=== PATIENT | female | born 1935 | race Caucasian/White ===

== ENCOUNTER 2016-07-09 13:10 | Emergency (ER) | payer BC ==
[~2016-07-09] VITALS: Ht 154.9 cm; Wt 90.0 kg
[~2016-07-09 13:10] MED LIST: CHOL20004 PO; DILT120C2 PO; FAMO20TA8 PO; LEVO25TA7 PO; METO-296 PO; METO-298 PO; SIMV20TA6 PO
[2016-07-09 15:55] LABS: BASOPHILS % 0.7 % (0.0-2.0); DIFFERENTIAL COMMENT 0; EOSINOPHILS % 1.4 % (0.0-5.0); HEMATOCRIT. 30.2 % (36.0-48.0); LYMPHOCYTES % 26.4 % (20.0-50.0); MEAN CORPUSCULAR HGB CONC 33.2 g/dL (31.0-37.0); MEAN CORPUSCULAR VOLUME 87.2 fL (81.0-99.0); MEAN PLATELET VOLUME 8.3 fl (7.4-10.4); MONOCYTES % 10.4 % (2.0-8.0); NEUTROPHILS % 61.1 % (40.0-76.0); PLATELET 163 x1000/uL (130-400); RED BLOOD CELL COUNT 3.46 mill/uL (4.2-5.4); RED CELL DISTRIBUTION WIDTH 19.9 % (11.6-14.6); WHITE BLOOD COUNT 5.3 x1000/uL (4.5-11.0)
[2016-07-09 15:59] LABS: INR 1.9; PROTHROMBIN TIME 20.1 sec
[2016-07-09 16:09] LABS: ALANINE AMINOTRANSFERASE 22 IU/L (13-61); ALBUMIN 3.6 g/dL (3.4-5.0); ANION GAP 10; CALCIUM 8.4 mg/dL (8.5-10.1); CARBON DIOXIDE 26 mEq/L (21-32); CHLORIDE 110 mEq/L (98-107); INDEX HEMOLYSI 1 (1-3); INDEX ICTERIC 1 (1-4); INDEX LIPEMIC 1 (1-3); TROPONIN I < 0.02 ng/mL (0.00-0.04); UREA NITROGEN BLOOD 11 mg/dL (7-21); eGFR > 60 mL/min (>60)
[2016-07-09 19:07] VITALS: BP 179/83
== END 2016-07-09 19:38 | disposition home or self-care (01) ==
LOC: ER 14:58
DX: R53.1 Weakness (principal); R42 Dizziness and giddiness; R79.89 Other specified abnormal findings of blood chemistry; R03.0 Elevated blood-pressure reading, without diagnosis of hypertension; I48.91 Unspecified atrial fibrillation; Z86.73 Personal history of transient ischemic attack (TIA), and cerebral infarction without residual deficits; Z95.0 Presence of cardiac pacemaker
CPT/HCPCS: 36415; 71010; 80053; 84484; 85025; 85610; 86850; 86900; 93005; 99285

== ENCOUNTER 2017-06-20 06:47 | Observation (INO) | payer BC ==
[~2017-06-20] VITALS: Ht 152.4 cm; Wt 76.2 kg
[~2017-06-20 06:47] MED LIST changes: +DILT-26 PO; -DILT120C2 PO; -METO-296 PO; -METO-298 PO; +METO-385 PO
[2017-06-20] MEDS ORDERED: MORPHINE SULFATE 4 MG/ML CPJ (NOT FOR IM USE) IV STA (07:10)
[2017-06-20 07:54] LABS: BASOPHILS % 0.4 % (0.0-2.0); HEMATOCRIT. 26.6 % (36.0-48.0); HEMOGLOBIN. 9.1 g/dL (12.0-16.0); LYMPHOCYTES % 10.1 % (20.0-50.0); MEAN CORPUSCULAR HEMOGLOBIN 33.9 pg (28.0-32.0); MEAN PLATELET VOLUME 8.7 fl (7.4-10.4); NEUTROPHILS % 78.5 % (40.0-76.0); PLATELET 164 x1000/uL (130-400); RED BLOOD CELL COUNT 2.69 mill/uL (4.2-5.4)
[2017-06-20 07:59] LABS: CHLORIDE 109 mEq/L (98-107)
[2017-06-20 08:02] LABS: INR 1.2; PARTIAL THROMBOPLASTIN TIME 26.1 sec (23.4-31.0); PROTHROMBIN TIME 12.8 sec (9.4-11.6)
[2017-06-20] MEDS ORDERED: NITROGLYCERIN OINT 1GM/INCH UDPKT TD ONE (08:15)
[2017-06-20] MEDS ORDERED: MORPHINE SULFATE 2 MG/ML CPJ (NOT FOR IM USE) IV ONE (08:15)
[2017-06-20 10:49] VITALS: BP 120/58
[2017-06-20 12:00] VITALS: BP 120/58
[2017-06-20] MEDS ORDERED: IPRATROPIUM/ALBUTEROL 0.5-3(2.5)MG/3ML NEB INH PRN (12:30)
[2017-06-20] MEDS ORDERED: ONDANSETRON HCL 4MG/2ML VIAL IV PRN (12:30)
[2017-06-20] MEDS ORDERED: ACETAMINOPHEN 325MG TABLET PO PRN (12:30)
[2017-06-20] MEDS ORDERED: HYDROCODONE/ACETAMINOPHEN 5/325MG TABLET PO PRN (12:30)
[2017-06-20 16:00] VITALS: BP 121/52
[2017-06-20] MEDS: WARFARIN SODIUM 5MG TABLET PO SCH ×2 (18:00→22:37)
[2017-06-20 18:22] LABS: CREATINE KINASE 112 IU/L (26-192)
[2017-06-20 18:23] LABS: CREATINE KINASE MB FRACTION 0.9 ng/mL (0.5-3.6)
[2017-06-20 19:10] LABS: CLARITY URINE CLOUDY (CLEAR); COLOR URINE ORANGE (YELLOW); KETONES URINE TRACE (NEGATIVE); LEUKOCYTE ESTERASE URINE 1+ (NEGATIVE); NITRITE URINE NEGATIVE (NEGATIVE); OCCULT BLOOD URINE 3+ (NEGATIVE); PH URINE 6.5 (4.5-8.0); PROTEIN URINE 2+ (NEGATIVE)
[2017-06-20 19:32] LABS: *BARBITURATES SCREEN URINE NEGATIVE (NEGATIVE); *BENZODIAZEPINES SCREEN URINE NEGATIVE (NEGATIVE); CANNABINOID URINE SCREEN NEGATIVE (NEGATIVE); OPIATES URINE SCREEN PRESUMTIVE POSITIVE (NEGATIVE); PHENCYCLIDINE URINE SCREEN NEGATIVE (NEGATIVE)
[2017-06-20 19:33] LABS: *AMPHETAMINES SCREEN URINE NEGATIVE (NEGATIVE)
[2017-06-20 19:40] LABS: METHADONE URINE SCREEN NEGATIVE (NEGATIVE)
[2017-06-20 19:41] LABS: *COCAINE SCREEN URINE NEGATIVE (NEGATIVE)
[2017-06-20 20:00] VITALS: BP 116/51
[2017-06-20] MEDS ORDERED: IOHEXOL-350 100 ML BOTTLE ONE (22:04)
[2017-06-20] MEDS: ATORVASTATIN CALCIUM 10MG TABLET PO SCH (22:36)
[2017-06-20] MEDS: METOPROLOL TARTRATE 25MG TABLET PO SCH (22:36)
[2017-06-20] MEDS: CEFTRIAXONE 1 G PREMIX 50 ML IV SCH (23:06)
[2017-06-21] VITALS: BP 108/57
[2017-06-21 00:40] LABS: CREATINE KINASE 106 IU/L (26-192)
[2017-06-21 00:41] LABS: CREATINE KINASE MB FRACTION 0.7 ng/mL (0.5-3.6)
[2017-06-21 04:00] VITALS: BP 106/47
[2017-06-21 06:34] LABS: INR 1.2; PROTHROMBIN TIME 12.2 sec (9.4-11.6)
[2017-06-21] MEDS: LEVOTHYROXINE SODIUM 25MCG TABLET PO SCH (06:41)
[2017-06-21 07:02] LABS: BASOPHILS % 0.2 % (0.0-2.0); EOSINOPHILS % 0.9 % (0.0-5.0); HEMATOCRIT. 25.8 % (36.0-48.0); HEMOGLOBIN. 8.9 g/dL (12.0-16.0); LYMPHOCYTES % 16.4 % (20.0-50.0); MEAN CORPUSCULAR HEMOGLOBIN 33.9 pg (28.0-32.0); MEAN CORPUSCULAR VOLUME 98.3 fL (81.0-99.0); MONOCYTES % 13.4 % (2.0-8.0); NEUTROPHILS % 69.1 % (40.0-76.0); PLATELET 165 x1000/uL (130-400); RED BLOOD CELL COUNT 2.63 mill/uL (4.2-5.4); RED CELL DISTRIBUTION WIDTH 16.7 % (11.6-14.6)
[2017-06-21 07:48] LABS: CHLORIDE 108 mEq/L (98-107)
[2017-06-21 08:00] VITALS: BP 117/56
[2017-06-21 08:56] LABS: LDL CHOLESTEROL 46 mg/dL (5-100)
[2017-06-21 08:58] LABS: HDL CHOLESTEROL 58 mg/dL (40-59); T4 FREE 1.21 ng/dL (0.76-1.46)
[2017-06-21] MEDS ORDERED: MEDICATION NOT ON FORMULARY EA (Metoprolol Succinate 50 MG) PO SCH (09:00)
[2017-06-21] MEDS ORDERED: MEDICATION NOT ON FORMULARY EA (Cholecalciferol (Vitamin D) 2,000 UNIT) PO SCH (09:00)
[2017-06-21] MEDS ORDERED: MEDICATION NOT ON FORMULARY EA (Simvastatin 20 MG) PO SCH (09:00)
[2017-06-21] MEDS: CHOLECALCIFEROL (D3) 1000 UNIT TABLET PO SCH ×2 (09:31→18:12)
[2017-06-21] MEDS: METOPROLOL TARTRATE 25MG TABLET PO SCH ×2 (09:31→20:52)
[2017-06-21] MEDS: DILTIAZEM HCL 120MG CAPSULE CD 24HR PO SCH (09:32)
[2017-06-21] MEDS: FAMOTIDINE 20MG TABLET PO SCH (09:32)
[2017-06-21] MEDS ORDERED: LIDOCAINE HCL/PF 1% 10 MG/ML 5ML VIAL ONE (10:04)
[2017-06-21] MEDS ORDERED: SODIUM BICARBONATE 4% (2.4MEQ) 5ML VIAL IV ONE (10:04)
[2017-06-21] MEDS ORDERED: IOHEXOL-350 100 ML BOTTLE ONE (11:02)
[2017-06-21 12:00] VITALS: BP 106/46
[2017-06-21 16:00] VITALS: BP 125/57
[2017-06-21 18:58] LABS: HEMATOCRIT 26.8 % (36.0-48.0)
[2017-06-21 19:48] LABS: CLARITY URINE CLEAR (CLEAR); COLOR URINE YELLOW (YELLOW); KETONES URINE NEGATIVE (NEGATIVE); LEUKOCYTE ESTERASE URINE NEGATIVE (NEGATIVE); NITRITE URINE NEGATIVE (NEGATIVE); OCCULT BLOOD URINE 1+ (NEGATIVE); PROTEIN URINE NEGATIVE (NEGATIVE); SPECIFIC GRAVITY URINE 1.018 (1.005-1.030); UROBILINOGEN URINE >8.0 E.U./dL (0.2-1.0)
[2017-06-21 20:00] VITALS: BP 122/51
[2017-06-21] MEDS: ATORVASTATIN CALCIUM 10MG TABLET PO SCH (20:52)
[2017-06-21] MEDS: CEFTRIAXONE 1 G PREMIX 50 ML IV SCH (23:49)
[2017-06-22] VITALS: BP 116/47
[2017-06-22] MEDS: CEFTRIAXONE 1 G PREMIX 50 ML IV SCH ×2 (00:04→03:45)
[2017-06-22 04:00] VITALS: BP 125/56
[2017-06-22 06:30] LABS: HEMATOCRIT. 23.7 % (36.0-48.0); HEMOGLOBIN. 8.1 g/dL (12.0-16.0); MEAN CORPUSCULAR HEMOGLOBIN 34.2 pg (28.0-32.0); MEAN CORPUSCULAR VOLUME 99.7 fL (81.0-99.0); PLATELET 150 x1000/uL (130-400); RED BLOOD CELL COUNT 2.38 mill/uL (4.2-5.4); RED CELL DISTRIBUTION WIDTH 17.3 % (11.6-14.6)
[2017-06-22] MEDS: LEVOTHYROXINE SODIUM 25MCG TABLET PO SCH (06:40)
[2017-06-22 07:29] LABS: CHLORIDE 112 mEq/L (98-107)
[2017-06-22 08:00] VITALS: BP 117/60
[2017-06-22] MEDS: METOPROLOL TARTRATE 25MG TABLET PO SCH (09:00)
[2017-06-22] MEDS: FAMOTIDINE 20MG TABLET PO SCH (09:02)
[2017-06-22] MEDS: DILTIAZEM HCL 120MG CAPSULE CD 24HR PO SCH (09:02)
[2017-06-22] MEDS: CHOLECALCIFEROL (D3) 1000 UNIT TABLET PO SCH (09:02)
[2017-06-22 12:00] VITALS: BP 102/55
[2017-06-22 15:44] VITALS: BP 114/55
[2017-06-22 15:54] LABS: HEMATOCRIT 25.7 % (36.0-48.0)
[2017-06-22 16:00] VITALS: BP 114/55
[2017-06-23 01:58] LABS: PLATELET ESTIMATE NORMAL
== END 2017-06-22 17:47 | disposition home or self-care (01) ==
LOC: ER 06:47 → INTOOBSV 08:35 → 5WST 08:35 → EDBEDREQ 08:41 → ENRESERV 09:16
PROVIDERS: ADMIT Internal Medicine; ATTEND Internal Medicine
DX: I25.110 Atherosclerotic heart disease of native coronary artery with unstable angina pectoris (principal); R17 Unspecified jaundice; D64.9 Anemia, unspecified; I48.2 Chronic atrial fibrillation; Z79.01 Long term (current) use of anticoagulants; I11.9 Hypertensive heart disease without heart failure; E78.5 Hyperlipidemia, unspecified; Z95.2 Presence of prosthetic heart valve; Z86.73 Personal history of transient ischemic attack (TIA), and cerebral infarction without residual deficits; J90 Pleural effusion, not elsewhere classified; I48.1 Persistent atrial fibrillation; I27.21 Secondary pulmonary arterial hypertension; G89.29 Other chronic pain; E03.9 Hypothyroidism, unspecified; Z95.0 Presence of cardiac pacemaker; Z79.82 Long term (current) use of aspirin; Z95.5 Presence of coronary angioplasty implant and graft
CPT/HCPCS: 36415; 36569; 71045; 71250; 71275; 76937; 77001; 78582; 80048; 80053; 80061; 80305; 81003; 82550; 82553; 83690; 83735; 83880; 84439; 84443; 84484; 85014; 85018; 85025; 85379; 85610; 85730; 87086; 93005; 93306; 93970; 96365; 96375; 96376; 99285; A9540; A9558; C1725; C1751; G0378; J0696; J2270; J3490; J7050; Q9967; 96374

== ENCOUNTER 2017-06-25 13:15 | Emergency (ER) | payer BC ==
[~2017-06-25] VITALS: Ht 154.9 cm; Wt 80.0 kg
[2017-06-25 14:19] LABS: BASOPHILS % 0.8 % (0.0-2.0); EOSINOPHILS % 1.8 % (0.0-5.0); HEMATOCRIT. 24.3 % (36.0-48.0); HEMOGLOBIN. 8.3 g/dL (12.0-16.0); LYMPHOCYTES % 17.5 % (20.0-50.0); MEAN CORPUSCULAR HEMOGLOBIN 33.9 pg (28.0-32.0); MEAN CORPUSCULAR VOLUME 99.1 fL (81.0-99.0); MEAN PLATELET VOLUME 8.5 fl (7.4-10.4); MONOCYTES % 14.3 % (2.0-8.0); NEUTROPHILS % 65.6 % (40.0-76.0); PLATELET 180 x1000/uL (130-400); RED BLOOD CELL COUNT 2.45 mill/uL (4.2-5.4); RED CELL DISTRIBUTION WIDTH 17.5 % (11.6-14.6)
[2017-06-25 14:28] LABS: CHLORIDE 109 mEq/L (98-107)
[2017-06-25 15:19] LABS: CLARITY URINE TURBID (CLEAR); COLOR URINE RED (YELLOW); KETONES URINE NEGATIVE (NEGATIVE); LEUKOCYTE ESTERASE URINE 2+ (NEGATIVE); NITRITE URINE POSITIVE (NEGATIVE); OCCULT BLOOD URINE 1+ (NEGATIVE); PROTEIN URINE 1+ (NEGATIVE); SPECIFIC GRAVITY URINE 1.024 (1.005-1.030)
[2017-06-25 15:32] LABS: INR 1.1; PARTIAL THROMBOPLASTIN TIME 24.8 sec (23.4-31.0); PROTHROMBIN TIME 11.4 sec (9.4-11.6)
[2017-06-25] MEDS ORDERED: IPRATROPIUM/ALBUTEROL 0.5-3(2.5)MG/3ML NEB INH PRN (16:45)
[2017-06-25] MEDS ORDERED: GUAIFENESIN 200MG/10ML SUGAR FREE UDC PO PRN (16:45)
[2017-06-25] MEDS ORDERED: CLONIDINE 0.1MG TABLET PO PRN (16:45)
[2017-06-25] MEDS ORDERED: ONDANSETRON HCL 4MG/2ML VIAL IV PRN (16:45)
[2017-06-25] MEDS ORDERED: HYDROCODONE/ACETAMINOPHEN 5/325MG TABLET PO PRN (16:45)
[2017-06-25] MEDS ORDERED: MAGNESIUM/ALUMINUM HYDROXIDE/SIMETHICONE 30ML UDC PO PRN (16:45)
[2017-06-25] MEDS ORDERED: ACETAMINOPHEN 325MG TABLET PO PRN (16:45)
[2017-06-25 18:49] VITALS: BP 148/83
[2017-06-25] MEDS ORDERED: MEDICATION NOT ON FORMULARY EA (Simvastatin 20 MG) PO SCH (21:00)
[2017-06-25] MEDS ORDERED: SULFAMETHOXAZOLE/TRIMETHOPRIM 400/80MG TAB PO SCH (21:00)
[2017-06-26] MEDS ORDERED: LEVOTHYROXINE SODIUM 25MCG TABLET PO SCH (07:50)
[2017-06-26] MEDS ORDERED: DILTIAZEM HCL 120MG CAPSULE CD 24HR PO SCH (09:00)
[2017-06-26] MEDS ORDERED: MEDICATION NOT ON FORMULARY EA (Metoprolol Succinate 50 MG) PO SCH (09:00)
[2017-06-26] MEDS ORDERED: FAMOTIDINE(NEO) 1MG/ML SUSP PO SCH (09:00)
== END 2017-06-25 19:25 | disposition home or self-care (01) ==
LOC: ER 14:58
DX: N39.0 Urinary tract infection, site not specified (principal); I25.10 Atherosclerotic heart disease of native coronary artery without angina pectoris; I11.9 Hypertensive heart disease without heart failure; E03.9 Hypothyroidism, unspecified; Z86.73 Personal history of transient ischemic attack (TIA), and cerebral infarction without residual deficits; Z95.0 Presence of cardiac pacemaker; Z98.890 Other specified postprocedural states
CPT/HCPCS: 36415; 71045; 74176; 80048; 81003; 83735; 84484; 85025; 85610; 85730; 87086; 93005; 99285

== ENCOUNTER 2018-07-15 12:28 | Inpatient (IN) | payer BC ==
[~2018-07-15] VITALS: Ht 152.4 cm; Wt 85.3 kg
[2018-07-15 15:29] LABS: HEMATOCRIT. 24.2 % (36.0-48.0); MEAN CORPUSCULAR VOLUME 106.4 fL (81.0-99.0); MEAN PLATELET VOLUME 9.4 fl (7.4-10.4); PLATELET 154 x1000/uL (130-400); RED BLOOD CELL COUNT 2.27 mill/uL (4.2-5.4); RED CELL DISTRIBUTION WIDTH 30.8 % (11.6-14.6)
[2018-07-15 15:37] LABS: CHLORIDE 112 mEq/L (98-107); INR 2.6; PROTHROMBIN TIME 25.4 sec (9.6-11.0)
[2018-07-15 15:41] LABS: ETHANOL BLOOD < 10 mg/dL
[2018-07-15 16:08] LABS: PLATELET ESTIMATE NORMAL
[2018-07-15] MEDS ORDERED: FUROSEMIDE 20MG/2ML VIAL IVP ONE (16:15)
[2018-07-15 17:46] LABS: CLARITY URINE TURBID (CLEAR); COLOR URINE ORANGE (YELLOW); KETONES URINE NEGATIVE (NEGATIVE); LEUKOCYTE ESTERASE URINE 1+ (NEGATIVE); NITRITE URINE POSITIVE (NEGATIVE); OCCULT BLOOD URINE 2+ (NEGATIVE); PROTEIN URINE 2+ (NEGATIVE); SPECIFIC GRAVITY URINE 1.024 (1.005-1.030)
[2018-07-15] MEDS ORDERED: AZITHROMYCIN 500 MG in DEXT 5% WATER 250 ML IV SCH (18:00)
[2018-07-15] MEDS ORDERED: CEFTRIAXONE 1 G PREMIX 50 ML IV ONE (18:00)
[2018-07-15 21:35] VITALS: BP 107/54
[2018-07-15 22:00] VITALS: BP 107/54
[2018-07-16] VITALS: BP 101/55
[2018-07-16 04:00] VITALS: BP 104/53
[2018-07-16] MEDS: PANTOPRAZOLE 40MG DR TABLET PO SCH (06:14)
[2018-07-16 08:00] VITALS: BP 119/67
[2018-07-16] MEDS ORDERED: CEFTRIAXONE 1 G PREMIX 50 ML IV SCH ×2 (09:00→20:00)
[2018-07-16] MEDS: FUROSEMIDE 40MG/4ML VIAL IVP SCH (10:09)
[2018-07-16] MEDS: SPIRONOLACTONE 25MG TABLET PO SCH ×2 (10:10→20:59)
[2018-07-16 12:00] VITALS: BP 113/64
[2018-07-16 12:33] LABS: BASOPHILS % 1.1 % (0.0-2.0); EOSINOPHILS % 1.6 % (0.0-5.0); HEMATOCRIT. 23.1 % (36.0-48.0); HEMOGLOBIN. 7.6 g/dL (12.0-16.0); LYMPHOCYTES % 14.7 % (20.0-50.0); MEAN CORPUSCULAR HEMOGLOBIN 34.6 pg (28.0-32.0); MEAN CORPUSCULAR VOLUME 104.9 fL (81.0-99.0); MEAN PLATELET VOLUME 9.4 fl (7.4-10.4); MONOCYTES % 14.7 % (2.0-8.0); NEUTROPHILS % 67.9 % (40.0-76.0); PLATELET 146 x1000/uL (130-400); RED CELL DISTRIBUTION WIDTH 30.7 % (11.6-14.6)
[2018-07-16 12:44] LABS: CHLORIDE 112 mEq/L (98-107)
[2018-07-16] MEDS: PIPERACILLIN/TAZ 3.375G PREMIX 50 ML IV SCH ×2 (13:16→20:33)
[2018-07-16 16:00] VITALS: BP 109/54
[2018-07-16] MEDS ORDERED: KCL 20MEQ/100ML PREMIX 100 ML IV NR (17:00)
[2018-07-16] MEDS ORDERED: MORPHINE SULFATE 2 MG/ML CPJ (NOT FOR IM USE) IV PRN (17:15)
[2018-07-16] MEDS ORDERED: LORAZEPAM 0.5MG TABLET PO PRN (17:15)
[2018-07-16] MEDS ORDERED: DIPHENHYDRAMINE 50MG/ML VIAL IV PRN (17:15)
[2018-07-16] MEDS ORDERED: HYDRALAZINE 20MG/ML VIAL IV PRN (17:15)
[2018-07-16] MEDS: DILTIAZEM HCL 30MG TABLET PO SCH (17:31)
[2018-07-16 18:20] LABS: T4 FREE 1.41 ng/dL (0.76-1.46)
[2018-07-16 18:30] LABS: FERRITIN 70 ng/mL (10-291)
[2018-07-16 18:42] LABS: HEPATITIS B SURFACE ANTIGEN NEGATIVE
[2018-07-16 19:03] LABS: BG BASE EXCESS 1.1 mmol/L (-2.0-2.0); BG DEOXYHEMOGLOBIN 6.8 % (0.0-5.0); BG FRACTION INSPIRED OXYGEN 21; BG HCO3 ACT 24.4 mmol/L (22.0-26.0); BG METHEMOGLOBIN 0.9 % (0.0-1.5); BG OXYGEN SATURATION 92.8 % (92.0-98.5); BG OXYHEMOGLOBIN 88.3 % (94.0-97.0); BG PCO2 33.5 mmHg (35.0-45.0); BG PO2 66.4 mmHg (75.0-100.0); BG SAMPLE SITE RIGHT RADIAL; BG TOTAL HEMOGLOBIN 8.9 g/dL (12.0-18.0); BG VENT MODE ROOM AIR
[2018-07-16 19:11] LABS: HEPATITIS A AB IGM NEGATIVE (NEGATIVE)
[2018-07-16 20:00] VITALS: BP 122/66
[2018-07-16 20:48] LABS: VITAMIN B12 SERUM 397 pg/mL (211-911)
[2018-07-16] MEDS: LACTULOSE 20G/30ML UDC PO SCH (20:59)
[2018-07-16] MEDS: METOPROLOL TARTRATE 25MG TABLET PO SCH (21:00)
[2018-07-17] VITALS (11 sets, daily range): BP systolic 91–131; BP diastolic 35–69
[2018-07-17] MEDS: DILTIAZEM HCL 30MG TABLET PO SCH ×4 (00:46→20:51)
[2018-07-17] MEDS: PIPERACILLIN/TAZ 3.375G PREMIX 50 ML IV SCH ×5 (01:31→23:01)
[2018-07-17 06:07] LABS: PROTHROMBIN TIME 19.7 sec (9.6-11.0)
[2018-07-17 06:08] LABS: BASOPHILS % 0.9 % (0.0-2.0); EOSINOPHILS % 1.5 % (0.0-5.0); HEMATOCRIT. 22.7 % (36.0-48.0); HEMOGLOBIN. 7.7 g/dL (12.0-16.0); MEAN CORPUSCULAR HEMOGLOBIN 34.9 pg (28.0-32.0); MEAN CORPUSCULAR VOLUME 103.4 fL (81.0-99.0); MEAN PLATELET VOLUME 9.4 fl (7.4-10.4); MONOCYTES % 13.8 % (2.0-8.0); NEUTROPHILS % 66.8 % (40.0-76.0); PLATELET 159 x1000/uL (130-400); RED CELL DISTRIBUTION WIDTH 30.1 % (11.6-14.6)
[2018-07-17] MEDS: PANTOPRAZOLE 40MG DR TABLET PO SCH (06:41)
[2018-07-17] MEDS: LACTULOSE 20G/30ML UDC PO SCH ×3 (06:41→23:01)
[2018-07-17 07:23] LABS: CHLORIDE 110 mEq/L (98-107)
[2018-07-17 07:46] LABS: AMYLASE 82 IU/L (25-115)
[2018-07-17] MEDS: SPIRONOLACTONE 25MG TABLET PO SCH ×2 (08:19→20:50)
[2018-07-17] MEDS: FUROSEMIDE 40MG/4ML VIAL IVP SCH (08:20)
[2018-07-17] MEDS: METOPROLOL TARTRATE 25MG TABLET PO SCH ×2 (08:22→20:51)
[2018-07-17 16:28] LABS: BG BASE EXCESS 0.9 mmol/L (-2.0-2.0); BG CARBOXYHEMOGLOBIN 2.7 % (0.5-1.5); BG DEOXYHEMOGLOBIN 2.8 % (0.0-5.0); BG FRACTION INSPIRED OXYGEN 26; BG HCO3 ACT 25.4 mmol/L (22.0-26.0); BG METHEMOGLOBIN 1.1 % (0.0-1.5); BG OXYGEN SATURATION 97.1 % (92.0-98.5); BG OXYHEMOGLOBIN 93.4 % (94.0-97.0); BG PCO2 39.9 mmHg (35.0-45.0); BG PH 7.422 (7.350-7.450); BG PO2 94.1 mmHg (75.0-100.0); BG SAMPLE SITE LEFT RADIAL; BG TOTAL HEMOGLOBIN 9.2 g/dL (12.0-18.0); BG VENT MODE NASAL CANNULA
[2018-07-18] VITALS (12 sets, daily range): BP systolic 108–134; BP diastolic 52–79
[2018-07-18] MEDS: LACTULOSE 20G/30ML UDC PO SCH ×3 (05:39→18:27)
[2018-07-18] MEDS: PIPERACILLIN/TAZ 3.375G PREMIX 50 ML IV SCH ×3 (05:47→18:27)
[2018-07-18 05:49] LABS: BASOPHILS % 0.9 % (0.0-2.0); EOSINOPHILS % 2.6 % (0.0-5.0); HEMATOCRIT. 25.2 % (36.0-48.0); HEMOGLOBIN. 8.5 g/dL (12.0-16.0); LYMPHOCYTES % 15.3 % (20.0-50.0); MEAN CORPUSCULAR HEMOGLOBIN 34.3 pg (28.0-32.0); MEAN CORPUSCULAR VOLUME 102.4 fL (81.0-99.0); MEAN PLATELET VOLUME 9.4 fl (7.4-10.4); MONOCYTES % 13.2 % (2.0-8.0); PLATELET 142 x1000/uL (130-400); RED BLOOD CELL COUNT 2.47 mill/uL (4.2-5.4); RED CELL DISTRIBUTION WIDTH 31.2 % (11.6-14.6)
[2018-07-18 06:04] LABS: INR 1.7; PROTHROMBIN TIME 17.4 sec (9.6-11.0)
[2018-07-18] MEDS: DILTIAZEM HCL 30MG TABLET PO SCH ×3 (06:39→21:13)
[2018-07-18] MEDS: PANTOPRAZOLE 40MG DR TABLET PO SCH (06:39)
[2018-07-18 08:19] LABS: CHLORIDE 109 mEq/L (98-107)
[2018-07-18] MEDS: FUROSEMIDE 40MG/4ML VIAL IVP SCH (08:59)
[2018-07-18 09:06] LABS: FOLATE HEMATOCRIT 23.7 % (34.0-46.6)
[2018-07-18] MEDS: METOPROLOL TARTRATE 25MG TABLET PO SCH ×2 (09:15→21:12)
[2018-07-18] MEDS: SPIRONOLACTONE 25MG TABLET PO SCH ×2 (09:15→21:12)
[2018-07-18 16:35] LABS: CREATINE KINASE 124 IU/L (26-192)
[2018-07-18] MEDS: RIFAXIMIN 550 MG TABLET PO SCH (21:11)
[2018-07-19] VITALS (12 sets, daily range): BP systolic 89–129; BP diastolic 47–69
[2018-07-19] MEDS: PIPERACILLIN/TAZ 3.375G PREMIX 50 ML IV SCH ×4 (00:46→17:55)
[2018-07-19] MEDS: DILTIAZEM HCL 30MG TABLET PO SCH ×3 (05:27→21:50)
[2018-07-19] MEDS: LACTULOSE 20G/30ML UDC PO SCH ×5 (05:27→18:57)
[2018-07-19 07:55] LABS: CHLORIDE 107 mEq/L (98-107); INR 1.5; PROTHROMBIN TIME 15.3 sec (9.6-11.0)
[2018-07-19] MEDS: FUROSEMIDE 40MG/4ML VIAL IVP SCH (08:14)
[2018-07-19] MEDS: PANTOPRAZOLE 40MG DR TABLET PO SCH ×2 (08:14→17:55)
[2018-07-19] MEDS: RIFAXIMIN 550 MG TABLET PO SCH ×2 (08:14→21:47)
[2018-07-19] MEDS: METOPROLOL TARTRATE 25MG TABLET PO SCH ×2 (08:15→21:48)
[2018-07-19] MEDS: SPIRONOLACTONE 25MG TABLET PO SCH ×2 (08:15→21:49)
[2018-07-19 08:19] LABS: HEMATOCRIT. 24.9 % (36.0-48.0); HEMOGLOBIN. 8.4 g/dL (12.0-16.0); MEAN CORPUSCULAR HEMOGLOBIN 34.2 pg (28.0-32.0); MEAN CORPUSCULAR VOLUME 101.6 fL (81.0-99.0); RED BLOOD CELL COUNT 2.45 mill/uL (4.2-5.4)
[2018-07-19 08:54] LABS: PLATELET ESTIMATE NORMAL
[2018-07-19 08:55] LABS: MEAN PLATELET VOLUME 10.2 fl (7.4-10.4); PLATELET 148 x1000/uL (130-400)
[2018-07-19 10:28] LABS: BG BASE EXCESS 0.5 mmol/L (-2.0-2.0); BG FRACTION INSPIRED OXYGEN 21; BG HCO3 ACT 24.5 mmol/L (22.0-26.0); BG METHEMOGLOBIN 0.6 % (0.0-1.5); BG OXYGEN SATURATION 94.8 % (92.0-98.5); BG OXYHEMOGLOBIN 90.4 % (94.0-97.0); BG PCO2 36.9 mmHg (35.0-45.0); BG PO2 75.2 mmHg (75.0-100.0); BG SAMPLE SITE RIGHT RADIAL; BG TOTAL HEMOGLOBIN 9.5 g/dL (12.0-18.0); BG VENT MODE ROOM AIR
[2018-07-19 10:44] LABS: HEMATOCRIT 26.2 % (36.0-48.0); HEMOGLOBIN 8.7 g/dL (12.0-16.0); MEAN CORPUSCULAR HEMOGLOBIN 34.2 pg (28.0-32.0); MEAN CORPUSCULAR VOLUME 102.6 fL (81.0-99.0); PLATELET 154 x1000/uL (130-400); RED BLOOD CELL COUNT 2.56 mill/uL (4.2-5.4); RED CELL DISTRIBUTION WIDTH 30.2 % (11.6-14.6)
[2018-07-19 10:52] LABS: CHLORIDE 107 mEq/L (98-107)
[2018-07-19 10:54] LABS: INR 1.5; PROTHROMBIN TIME 15.4 sec (9.6-11.0)
[2018-07-19] MEDS: GABAPENTIN 100MG CAPSULE PO SCH ×2 (13:42→17:55)
[2018-07-20] VITALS (10 sets, daily range): BP systolic 93–136; BP diastolic 44–71
[2018-07-20] MEDS: PIPERACILLIN/TAZ 3.375G PREMIX 50 ML IV SCH ×3 (00:43→12:09)
[2018-07-20] MEDS: LACTULOSE 20G/30ML UDC PO SCH ×3 (00:43→12:09)
[2018-07-20] MEDS: DILTIAZEM HCL 30MG TABLET PO SCH (05:15)
[2018-07-20 07:30] LABS: EOSINOPHILS % 2.4 % (0.0-5.0); HEMATOCRIT. 25.1 % (36.0-48.0); HEMOGLOBIN. 8.6 g/dL (12.0-16.0); LYMPHOCYTES % 15.2 % (20.0-50.0); MEAN CORPUSCULAR HEMOGLOBIN 34.8 pg (28.0-32.0); MEAN CORPUSCULAR VOLUME 101.6 fL (81.0-99.0); MEAN PLATELET VOLUME 9.5 fl (7.4-10.4); MONOCYTES % 14.7 % (2.0-8.0); NEUTROPHILS % 66.7 % (40.0-76.0); PLATELET 144 x1000/uL (130-400); RED BLOOD CELL COUNT 2.47 mill/uL (4.2-5.4); RED CELL DISTRIBUTION WIDTH 28.2 % (11.6-14.6)
[2018-07-20 08:00] LABS: INR 1.4; PROTHROMBIN TIME 13.9 sec (9.6-11.0)
[2018-07-20 08:59] LABS: CHLORIDE 106 mEq/L (98-107)
[2018-07-20] MEDS: RIFAXIMIN 550 MG TABLET PO SCH (09:59)
[2018-07-20] MEDS: FUROSEMIDE 40MG/4ML VIAL IVP SCH (09:59)
[2018-07-20] MEDS: SPIRONOLACTONE 25MG TABLET PO SCH (09:59)
[2018-07-20] MEDS: PANTOPRAZOLE 40MG DR TABLET PO SCH ×2 (09:59→16:25)
[2018-07-20] MEDS: GABAPENTIN 100MG CAPSULE PO SCH ×2 (09:59→16:26)
[2018-07-20] MEDS: METOPROLOL TARTRATE 25MG TABLET PO SCH (10:00)
[2018-07-20] MEDS ORDERED: MORPHINE SULFATE 2 MG/ML CPJ (NOT FOR IM USE) IV PRN (13:15)
[2018-07-20] MEDS ORDERED: DILTIAZEM HCL 60MG TABLET PO SCH (14:00)
[2018-07-20] MEDS ORDERED: LORAZEPAM 0.5MG TABLET PO PRN (14:00)
[2018-07-20] MEDS ORDERED: ENOXAPARIN 80MG/0.8ML SYR SUBCUT SCH (15:00)
[2018-07-20 16:25] LABS: INR 1.3; PROTHROMBIN TIME 13.1 sec (9.6-11.0)
[2018-07-20] MEDS ORDERED: WARFARIN SODIUM 7.5MG TABLET PO SCH (18:00)
[2018-07-23 14:17] LABS: FOLATE HEMOLYSATE 416.2 ng/mL (Not Estab.); FOLATE RBC 1756 ng/mL (>498)
== END 2018-07-20 17:15 | DRG 441 ==
LOC: ER 12:28 → 5WST 17:58 → EDBEDREQ 18:02 → EDBEDREQTM 18:02 → ENRESERV 20:18 → 5EST 07-17 17:08
PROVIDERS: ADMIT Internal Medicine; ATTEND Internal Medicine
PROC: 30233N1 Transfusion of Nonautologous Red Blood Cells into Peripheral Vein, Percutaneous Approach (ICD-10-PCS; principal; 2018-07-17)
PROC: 4B02XSZ Measurement of Cardiac Pacemaker, External Approach (ICD-10-PCS; 2018-07-17)
DX: K72.90 Hepatic failure, unspecified without coma (principal); J18.9 Pneumonia, unspecified organism; N39.0 Urinary tract infection, site not specified; R18.8 Other ascites; I48.1 Persistent atrial fibrillation; D68.9 Coagulation defect, unspecified; D61.818 Other pancytopenia; K92.2 Gastrointestinal hemorrhage, unspecified; E87.6 Hypokalemia; I11.0 Hypertensive heart disease with heart failure; I50.9 Heart failure, unspecified; I25.10 Atherosclerotic heart disease of native coronary artery without angina pectoris; K74.60 Unspecified cirrhosis of liver; E03.9 Hypothyroidism, unspecified; E78.5 Hyperlipidemia, unspecified; R73.9 Hyperglycemia, unspecified; R80.9 Proteinuria, unspecified; I49.5 Sick sinus syndrome; I95.9 Hypotension, unspecified; K43.9 Ventral hernia without obstruction or gangrene; I08.2 Rheumatic disorders of both aortic and tricuspid valves; G62.9 Polyneuropathy, unspecified; K57.30 Diverticulosis of large intestine without perforation or abscess without bleeding; Z79.01 Long term (current) use of anticoagulants; Z86.73 Personal history of transient ischemic attack (TIA), and cerebral infarction without residual deficits; Z95.2 Presence of prosthetic heart valve; Z95.0 Presence of cardiac pacemaker; Z98.49 Cataract extraction status, unspecified eye; Z98.891 History of uterine scar from previous surgery; Z86.19 Personal history of other infectious and parasitic diseases; Z85.05 Personal history of malignant neoplasm of liver; Z79.899 Other long term (current) drug therapy
CPT/HCPCS: 36415; 36600; 71045; 74176; 76700; 76705; 80048; 80061; 80076; 80320; 82140; 82150; 82270; 82375; 82550; 82607; 82728; 82747; 82805; 83036; 83540; 83550; 83605; 83735; 84439; 84443; 84484; 85014; 85027; 86038; 86705; 86709; 86803; 86850; 86900; 86920; 87340; 93005; 93306; 93923; 93970; 96365; 97162; 99285; A6261; J0456; J0696; J1200; J1650; J1940; J2270; J2543; J3480; J7040; J7050; J7060; P9016; A4315; G0480